=== PATIENT | male | born 1960 | race Hispanic/Latino ===

== ENCOUNTER 2018-08-31 14:59 | Emergency (ER) | payer MEDICARE ==
[2018-08-31 15:06] VITALS: BP 161/93; PULSE 98; RESP 16; TEMP 97.6; O2SAT 98
--- NOTE | 2018-08-31 15:50 | ED PDOC ---
HPI: Trauma/Fall - HPI Time Seen by Provider: 08/31/18 15:39 Chief Complaint (Nursing): Trauma Chief Complaint (Provider): fall facial trauma History Per: Patient History/Exam Limitations: no limitations Injury Occurred (Timing): Hours Ago: (<1) Severity: Mild Associated Symptoms: denies: Dizziness, Dazed, LOC, Seizure, Memory Impairment Additional Complaint(s): 57yo male states slip/fall on street, striking nose on ground suffering nose bleed after. Denies headache, new neck pain, change in vision or focal weakness. No LOC, has full recall of events. Nose bleed mostly stopped since arrival. Notes mild nasal pain but no orbital or other facial discomfort. Takes ASA daily. Past Medical History Reviewed: Historical Data, Nursing Documentation, Vital Signs Vital Signs: Last Vital Signs Temp 97.6 F 08/31/18 15:02 Pulse 98 H 08/31/18 15:02 Resp 16 08/31/18 15:02 BP 161/93 H 08/31/18 15:02 Pulse Ox 98 08/31/18 15:02 - Medical History PMH: CAD, HIV (patient states normal CD4 count and low viral load, compliant on all meds), Hypercholesterolemia, Hyperlipidemia - Surgical History Surgical History: Coronary Stent - Family History Family History: States: Unknown Family Hx - Immunization History Hx Tetanus Toxoid Vaccination: No Hx Influenza Vaccination: No Hx Pneumococcal Vaccination: No - Home Medications Home Medications: Ambulatory Orders Medication Instructions Recorded Atazanavir [Reyataz] 2 tab PO DAILY 06/07/14 Fenofibrate [Tricor] 145 mg PO DAILY 06/07/14 Metoprolol Tartrate 50 mg PO DAILY 06/07/14 Xrkun-0-Pinp Ethyl Esters [Lovaza] 2,000 mg PO BID 06/07/14 Ritonavir [Norvir] 100 mg PO DAILY 06/07/14 Simvastatin mg PO DAILY 06/07/14 Travada 1 tab PO DAILY 06/07/14 Polymyxin/Trimethoprim Sulfate 1 drop RIGHTEYE Q6 #1 bottle 07/30/14 [Polytrim Ophth Soln] - Allergies Allergies/Adverse Reactions: Allergies Allergy/AdvReac Type Severity Reaction Status Date / Time No Known Allergies Allergy Verified 08/31/18 15:01 Review of Systems Constitutional: Negative for: Fever Eyes: Negative for: Vision Change ENT: Positive for: Nose Pain. Negative for: Ear Pain, Nose Discharge, Nose Congestion, Mouth Pain, Throat Swelling Cardiovascular: Negative for: Chest Pain Respiratory: Negative for: Shortness of Breath Gastrointestinal: Negative for: Abdominal Pain Musculoskeletal: Negative for: Arm Pain, Back Pain, Leg Pain Skin: Negative for: Rash, Lesions Neurological: Negative for: Weakness, Numbness, Incoordination, Change in Speech, Seizures, Headache, Dizziness Physical Exam - Reviewed Nursing Documentation Reviewed: Yes Vital Signs Reviewed: Yes - Physical Exam Appears: Positive for: Well, Non-toxic Head Exam: Negative for: ATRAUMATIC Skin: Positive for: Normal Color, Warm ENT: Positive for: Other (R nare dried blood w small clot anterior inferiorly. No active bleeding. L nare unremarkable. ) Neck: Positive for: Painless ROM Respiratory: Negative for: Respiratory Distress Neurologic/Psych: Positive for: Alert, Oriented, Gait (normal). Negative for: Motor/Sensory Deficits - ECG O2 Sat by Pulse Oximetry: 98 Medical Decision Making Medical Decision Making: patient refused any imaging and all risks explained including delayed or failure to diagnose significant injury, fracture, intracranial bleeding, facial fracture or nasal hematoma, or other unforseen injury. Rec holding ASA x2 days. No epistaxis on eval here. Explained indications for return to ER and followup recommendations. States he will see ENT for possible nasal fracture. Disposition - Clinical Impression Clinical Impression: Facial trauma, Epistaxis - Patient ED Disposition Is Patient to be Admitted: No Counseled Patient/Family Regarding: Studies Performed - Disposition Disposition: Routine/Home Disposition Time: 15:44 Condition: STABLE Additional Instructions: YOU REFUSED CT IMAGING OF BRAIN AND FACIAL BONES TO RULE-OUT POTENTIALLY SERIOUS BLEEDING OR INJURY. RETURN TO ER IMMEDIATELY FOR ANY RETURN OF BLEEDING, HEADACHE, VOMITING, CHANGE VISION OR ANY CONCERN. RECOMMEND HOLDING ASPIRIN X2 DAYS. Instructions: Head Injury Observation (DC), Nosebleeds (DC), Nose Fracture (DC) - POA Present On Arrival: None
== END 2018-08-31 16:03 | disposition home or self-care (01) ==
LOC: H.ER 14:59
DX: S09.93XA Unspecified injury of face, initial encounter (principal); W01.0XXA Fall on same level from slipping, tripping and stumbling without subsequent striking against object, initial encounter; Y92.410 Unspecified street and highway as the place of occurrence of the external cause; R04.0 Epistaxis; Z95.5 Presence of coronary angioplasty implant and graft; I25.10 Atherosclerotic heart disease of native coronary artery without angina pectoris